=== PATIENT | female | born 1970 | race Caucasian/White ===

== ENCOUNTER 2017-12-02 09:50 | Day surgery (SDC) | payer OTHER ==
--- NOTE | 2017-12-01 09:46 | EKG ---
Test Date: 2017-12-01 Test Time: 09:39:58 [place] Leather Mosser: JONNY MEASUREMENT RESULTS: Intervals: Rate: 53 NH: 194 QRSD: 86 QT: 434 QTc: 407 [place]: P: 72 NH: 194 QRS: 69 T: 38 INTERPRETIVE STATEMENTS: Sinus bradycardia Otherwise normal ECG No previous ECG available for comparison Electronically Signed On 12-01-17 09:46:37 CDT by Slava Yoon
--- NOTE | 2017-12-01 10:08 | RAD REPORT ---
EXAM DESCRIPTION: RAD - Chest Pa And Lat (2 Views) - 12/01/2017 9:53 am CLINICAL HISTORY: Preop chest, pending lithotripsy COMPARISON: None. TECHNIQUE: PA and lateral views of the chest were obtained. FINDINGS: The lungs are clear. Heart size is normal and central vasculature is within normal limit s. No pleural effusion or pneumothorax seen. No acute bony finding noted. No aortic abnormality. IMPRESSION: No acute cardiopulmonary process.
[2017-12-01 10:09] LABS: Absolute Lymphocytes (CBC) 1.5 K/uL (0.7-4.9); Absolute Monocytes 0.4 K/uL (0.1-1.3); Absolute Neutrophil 4.2 K/uL (1.8-8.0); Basophils % 0.8 % (0-1.3); Eosinophils % 2.3 % (0-4.4); Hematocrit 39.9 % (36.0-45.0); Lymphocytes % 23.4 % (15.3-44.8); MCH 30.9 pg (27.0-35.0); MCV 93.9 fL (80-100); MPV 7.1 fL (7.6-11.3); Monocytes % 6.6 % (3.3-12.3); RBC Red Blood Cell Count 4.25 M/uL (3.86-4.86)
[2017-12-01 10:11] LABS: Urine Appearance CLEAR; Urine Bilirubin NEGATIVE (NEG); Urine Blood 3+ (NEG); Urine Color YELLOW; Urine Glucose NEGATIVE (NEG); Urine Protein NEGATIVE (NEG); Urine Urobilinogen 0.2 mg/dL (0.2-1.0)
[2017-12-01 10:12] LABS: Urine Microscopic Reflex ORDER UMIC
[2017-12-01 10:29] LABS: Protime INR 0.85
[2017-12-01 10:47] LABS: Urine Bacteria <20 /HPF (<20); Urine Culture Reflex Order NOT NEEDED; Urine RBC >50 /HPF (NONE SEEN)
[2017-12-01 11:14] LABS: Potassium 4.2 mEq/L (3.6-5.0)
[2017-12-01 11:33] LABS: Phosphorus 3.9 mg/dL (2.5-4.3); Uric Acid 3.2 mg/dL (2.6-8.0)
[~2017-12-02 09:50] MED LIST: GENTAMICIN 100 MG/100 ML BAG 100 MG/100 ML BAG IV SCH
--- OUTSIDE RECORDS SUMMARY | 2017-12-02 09:52 | XMS REPORT | Clinical Summary ---
:1970 Author Organization [facility] Address [address] [place] [address] Care Team Providers Name Role Phone Bree Michelle MD Primary Care Provider Allergies Active Allergy Reactions Severity Noted Date Comments Duloxetine Rash Low 09/02/2015 Milnacipran Rash Low 09/02/2015 Current Medications Prescription Sig. Disp. Refills Start End Status Date Date baclofen (LIORESAL) 20 Take 20 mg by 0 01/12/20 Active MG tablet mouth once 16 daily. diazepam (VALIUM) 10 Take 10 mg by 0 01/24/20 Active MG tablet mouth nightly as 16 needed. meloxicam (MOBIC) 15 Take 15 mg by 0 01/24/20 Active MG tablet mouth as needed. 16 methylPREDNISolone TAKE 6 TABLETS 0 01/24/20 Active (MEDROL DOSEPACK) 4 mg ON DAY 1 16 tablet DIRECTED ON PACKAGE AND DECREASE BY 1 TAB EACH DAY FOR A TOTAL OF 6 DAYS propranolol LA 1 CAPSULE BY 3 12/26/19 Active (INDERAL LA) 160 mg 24 MOUTH DAILY 16 hr capsule MAXALT 10 mg tablet Take 10 mg by 01/25/20 Active mouth once as 16 needed. tiZANidine (ZANAFLEX) Take 4 mg by 12/11/19 Active 4 MG tablet mouth every 6 16 (six) hours as needed. zolpidem (AMBIEN) 10 TAKE 1 TABLET BY 0 01/08/20 Active mg tablet MOUTH NIGHTLY AT 16 BEDTIME promethazine Phenadoz 25 mg Active (PHENADOZ) 25 MG rectal suppository suppository promethazine promethazine 25 Active (PHENERGAN) 25 MG mg tablet tablet FLUARIX QUAD TO BE 0 04/07/20 Active 1083-4222, PF, syringe ADMINISTERED BY 16 vaccine PHARMACIST FOR IMMUNIZATION diclofenac (VOLTAREN) 05/07/20 Active 1 % gel 16 ondansetron ODT Take 4 mg by 0 06/16/20 Active (ZOFRAN-ODT) 4 MG mouth 3 (three) 17 disintegrating tablet times a day. levonorgestrel-ethinyl TAKE 1 TABLET BY 91 tablet 3 07/10/19 Active estrad (SEASONALE) MOUTH DAILY. 18 0.15 mg-30 mcg per tablet levonorgestrel-ethinyl Take 1 tablet by 28 tablet 9 04/02/20 Discontinued estrad (SEASONALE) mouth daily. 16 017 0.15-30 mg-mcg per tablet ZIPSOR 25 mg capsule TAKE 1 CAPSULE 0 05/07/20 Discontinued BY MOUTH EVERY 16 018 6-8 HOURS NEEDED baclofen (LIORESAL) 10 Take 10 mg by 0 05/07/20 Discontinued MG tablet mouth once 16 018 daily. levonorgestrel-ethinyl TAKE 1 TABLET BY 91 tablet 0 04/22/20 Discontinued estrad (SEASONALE) MOUTH DAILY. 17 018 0.15 mg-30 mcg per tablet oseltamivir (TAMIFLU) Take 1 capsule 10 capsule 0 07/10/19 75 MG capsule (75 mg total) by 18 018 mouth 2 (two) times a day for 5 days. Active Problems Problem Noted Date Migraines 04/25/2016 Overview: Patient is taking migraine medication for this. Does have headaches every [address] Pily Arellano is her neurologist. Resolved Problems Problem Noted Date Resolved Date Diabetes mellitus 09/02/2015 07/10/2017 HLD (hyperlipidemia) 09/02/2015 07/10/2017 Encounters Date Type Specialty Care Team Description 12/01/2017 Orders Only Internal Medicine Bree Michelle MD 11/21/2017 Telephone Internal Medicine Nate Loyola MA Kidney stones ( Primary Dx) 07/10/2017 Lab Lab Bree Michelle Routine general medical examination at a health care facility; MD Castro Screening for hyperlipidemia; Diabetes mellitus screening 07/10/2017 Office Visit Internal Medicine Bree Michelle Routine general medical examination at a health care facility (Primary Dx); MD Castro Diabetes mellitus screening; Screening for hyperlipidemia; Encounter for other general counseling and advice on contraception 04/21/2017 Refill Family Medicine MichelleBree MD after 12/01/2016 Immunizations Name Dates Previously Given Next Due FLUZONE QUAD INTRADERMAL PF 04/07/2016 Influenza Trivalent 03/30/2014 Tdap 12/28/2010 Zoster 04/20/2015 Family History Medical History Relation Name Comments Hypertension Father Migraines Father Kidney cancer Maternal Grandmother Osteopenia Mother hip replacement recently Arthritis Paternal Grandfather Seizures Paternal Grandfather Kidney disease Son FSGS--full remission currently Relation Name Status Comments Father Alive Maternal Grandmother Mother Alive Paternal Grandfather Son Social History Tobacco Use Types Packs/Day Years Used Date Never Smoker Smokeless Tobacco: Never Used Tobacco Cessation: Counseling Given: No Alcohol Use Drinks/Week oz/Week Comments Yes 3-5 Standard drinks or equivalent 1.8 - 3.0 social drinker Sex Assigned at Date Recorded Not on file Last Filed Vital Signs Vital Sign Reading Time Taken Blood Pressure 114/78 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 Pulse 57 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 Temperature 36.7 C (98 F) 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 Respiratory Rate - - Oxygen Saturation 100% 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 Specimen Performing Laboratory Blood Comprehensive metabolic panel (12/01/2017)Only the most recent of3 resultswithin the time period is included. Specimen Performing Laboratory Blood Hemoglobin A1c (07/10/2017 9:49 AM) Component Value Ref Range Hemoglobin A1C 4.9 <5.7 % of total Hgb Comment: For the purpose of screening for the presence of diabetes: <5.7% Consistent with the absence of diabetes 5.7-6.4%Consistent with increased risk for diabetes (prediabetes) > or=6.5%Consistent with diabetes This assay result is consistent with a decreased risk of diabetes. Currently, no consensus exists regarding use of hemoglobin A1c for diagnosis of diabetes in children. According to [place] Diabetes [employer] (ADA) guidelines, hemoglobin A1c <7.0% represents optimal control in non- diabetic patients. Different metrics may apply to specific patient populations. Standards of Medical Care in Diabetes(ADA). Specimen Performing Laboratory Blood [facility] Lipid panel (07/10/2017 9:49 AM) Component Value Ref Range Cholesterol, total 191 <200 mg/dL HDL cholesterol 69 >50 mg/dL Triglycerides 107 <150 mg/dL LDL cholesterol calculated 102 (H) mg/dL (calc) Comment: Reference range: <100 Desirable range <100 mg/dL for patients with CHD or diabetes and <70 mg/dL for diabetic patients with known heart disease. LDL-C is now calculated using the Regis-Bauer calculation, which is a validated novel method providing better accuracy than the Friedewald equation in the estimation of LDL-C. Regis SS et al. XAVI. 2013;310(19): 9374-2412 (http://education.[employer]/faq/QVP344) Cholesterol/HDL ratio 2.8 <5.0 (calc) Non-HDL cholesterol 122 <130 mg/dL (calc) Comment: For patients with diabetes plus 1 major ASCVD risk factor, treating to a non-HDL-C goal of <100 mg/dL (LDL-C of <70 mg/dL) is considered a therapeutic option. Specimen Performing Laboratory Blood [facility] POC , urine (07/10/2017 9:44 AM) Component Value Ref Range test urine, POC Negative QC done No Specimen Performing Laboratory Urine after 12/01/2016 Insurance Payer Benefit Plan / Group Subscriber ID Type Phone Address AETNA AETNA HMO,POS,EPO, MC/EC xxxxxxxxx HMO Work: [address] [place], [place] [phone] [place], [place] [phone] Home:
[2017-12-02] MEDS ORDERED: GENTAMICIN 100 MG/100 ML BAG 100 MG/100 ML BAG IV ONE (10:10)
[2017-12-02] MEDS ORDERED: Ringers Lactate 1,000 ML IV ONE (10:10)
[2017-12-02 10:26] LABS: Specific Gravity 1.015 (1.005-1.030)
--- NOTE | 2017-12-02 11:21 | RAD REPORT ---
EXAM DESCRIPTION: RAD - Abdomen 1 View (KUB) - 12/02/2017 11:08 am CLINICAL HISTORY: Abdomen pain. FINDINGS: The bowel gas pattern is unremarkable. A moderate amount of stool is present within the co yumiko. Vague 3 millimeter density adjacent to the left transverse process of L1 probably represents the lynda ent's known renal calculus. There is an additional vague 3 millimeter density medial to this which ma y represent an additional calculus.
[2017-12-02] MEDS ORDERED: MIDAZOLAM HCL 2 MG/2 ML INJ ONE (11:22)
[2017-12-02] MEDS ORDERED: PROPOFOL 200 MG/20 ML VIAL IV ONE (11:22)
[2017-12-02] MEDS ORDERED: FENTANYL CITR 100 MCG/2 ML ONE (11:22)
[2017-12-02] MEDS ORDERED: ONDANSETRON HCL 40 MG/20 ML VIAL ONE (11:23)
[2017-12-02] MEDS ORDERED: LANO/MINERAL OIL/PETRO 3.5 GM ONE (11:39)
[2017-12-02] MEDS ORDERED: ONDANSETRON 4 MG/2 ML VIAL ONE (12:54)
[2017-12-02] MEDS ORDERED: PROMETHAZINE 25 MG/ML VIAL ONE (13:05)
[2017-12-02] MEDS ORDERED: HYDROCODONE/APAP 5/325 MG TAB ONE (13:10)
== END 2017-12-02 14:30 | disposition home or self-care (01) ==
LOC: OR 09:50
PROVIDERS: ATTEND Urology
PROC: 0TF4XZZ Fragmentation in Left Kidney Pelvis, External Approach (ICD-10-PCS; principal; 2017-12-02 11:00)
DX: N20.0 Calculus of kidney (principal); Z88.6 Allergy status to analgesic agent
CPT/HCPCS: 36415; 50590; 71046; 74018; 80048; 81003; 81015; 81025; 84100; 84550; 85025; 85610; 85730; 87086; 87088; 93005; J1580; J2250; J2405; J2550; J3010